=== PATIENT | female | born 1935 | race Caucasian/White ===

== ENCOUNTER 2016-12-15 14:45 | Inpatient (IN) | payer OTHER, MEDICARE ==
[~2016-12-15] VITALS: Ht 157.5 cm; Wt 55.0 kg
[2016-12-15] MEDS ORDERED: FOLI1TAB7 PO (15:06)
[2016-12-15] MEDS ORDERED: CLOP1TAB15 PO (15:06)
[2016-12-15] MEDS ORDERED: SIMV20TA2 PO (15:06)
--- NOTE | 2016-12-15 16:06 | DIAGNOSTIC IMAGING REPORT ---
ADDENDUM Addendum: There is a subtle lucency involving the lateral cortex of the femur at the level of the femoral spike. On the original interpretation, this was incorrectly assumed to represent a vascular groove. In retrospect, with the knowledge of the CT scan performed the same day, this lucency represents a nondisplaced fracture. Electronically signed by: Sidney Mtz M.D. 12/15/2016 5:03 PM Dictated Date/Time: 12/15/2016 5:01 PM ORIGINAL REPORT LEFT FEMUR 2 VIEWS, AP PELVIS AND LEFT HIP 2 VIEWS. CLINICAL HISTORY: Left femur and hip pain status post trauma COMPARISON: None. DISCUSSION: Views of the pelvis and left hip reveal no acute fractures. There are postsurgical changes of a left hip arthroplasty. There are osteoarthritic changes present on the right. Degenerative changes are present within the lower lumbar spine. Images of the left femur reveal postsurgical changes of a left hip arthroplasty. There are no acute fractures. There are vascular calcifications present. IMPRESSION: No acute fractures or dislocations identified. Electronically signed by: Sidney Mtz M.D. 12/15/2016 4:04 PM Dictated Date/Time: 12/15/2016 4:02 PM
[2016-12-15] MEDS ORDERED: HYDROCODONE/ACETAMOPHEN 5/325MG TAB PO STA (16:25)
--- NOTE | 2016-12-15 17:02 | DIAGNOSTIC IMAGING REPORT ---
ADDENDUM Addendum: There is fragmentation of the posterior lip of the acetabulum. This is likely old. This addendum was discussed with Dr. Puri. Electronically signed by: Sideny Mtz M.D. 12/15/2016 6:20 PM Dictated Date/Time: 12/15/2016 6:[address] LEFT HIP-LOWER EXTREMITY WITHOUT CT DOSE: 469.57 mGy.cm CLINICAL HISTORY: LEFT HIP PAIN. INABILITY TO BEAR WEIGHT. TECHNIQUE: Helical images were acquired in the transverse plane. Sagittal and coronal reformatted images were acquired. A dose lowering technique was utilized adhering to the principles of ALARA. COMPARISON STUDY: Conventional radiographic study dated 12/15/2016 FINDINGS: There are postsurgical changes of a total left hip arthroplasty. There is no dislocation There is a periprosthetic fracture extending the entire length of the femoral spike. There is 2.5 mm of maximal distraction. No acetabular fractures are visualized. IMPRESSION: 1. Periprosthetic femoral shaft fracture, extending the entire length of femoral spike with 2.5 mm of maximal distraction Electronically signed by: Sidney Mtz M.D. 12/15/2016 5:01 PM Dictated Date/Time: 12/15/2016 4:56 PM
--- NOTE | 2016-12-15 18:07 | EMERGENCY ROOM VISIT NOTE ---
History First contact with patient: 14:58 Chief Complaint: FALL Stated Complaint: PAIN UPPER THIGH, LEFT LEG History of Present Illness The patient is an 81 year old female who presents to the Emergency Room with complaints of left hip pain after a fall which occurred yesterday. The patient states that she tripped and fell yesterday while walking up steps, landing onto her left hip. She has a history of a hip replacement which was done by an orthopedist in [place]. She has had pain in the left hip since then and has not been able to bear any weight on the leg. The patient denies hitting her head. There were no other injuries sustained. She denies any numbness or weakness of the leg. She denies discomfort at rest. She has been taking Vicodin as needed for pain. Review of Systems A complete 6 point review of systems was reviewed with the patient with pertinent positives and negatives as per history of present illness. All else were negative. Past Medical/Surgical History Medical Problems: (1) Hip pain Surgical Problems: (1) Status post right knee replacement Social History Smoking Status: Never Smoker Housing Status: lives alone Occupation Status: retired Current/Historical Medications Scheduled Clopidogrel (Plavix), 75 MG PO DAILY Doxycycline Monohydrate (Monodox), 100 MG PO DAILY Folic Acid (Folvite), 1 MG PO DAILY Losartan Potassium (Cozaar), 1 TAB PO DAILY Ocuvite Preservision (Ocuvite Preservision), 1 TAB PO DAILY Pantoprazole Sodium (Protonix), 1 TAB PO DAILY Simvastatin (Zocor), 20 MG PO HS Physical Exam Vital Signs Date Time Temp Pulse Resp B/P (MAP) Pulse Ox O2 Delivery O2 Flow Rate FiO2 12/15/16 18:13 69 12/15/16 18:00 72 16 137/72 98 Room Air 12/15/16 16:03 71 16 116/60 94 Room Air 12/15/16 14:51 36.7 77 18 136/71 95 Room Air Physical Exam VITALS: Vitals are noted on the nurse's note and reviewed by myself. Vital signs stable. GENERAL: This is an 81-year-old female, appears younger than her stated age, in no acute distress, well-developed well-nourished. SKIN: The skin was without erythema, edema, or bruising. HEAD: Normocephalic atraumatic. HEART: Regular rate and rhythm without murmurs gallops or rubs. LUNGS: Clear to auscultation bilaterally without wheezes, rales or rhonchi. MUSCULOSKELETAL: Tenderness to palpation of the lateral left hip. No tenderness of the distal femur, knee or tibia/fibula. Decreased range of motion secondary to patient discomfort. Dorsalis pedis pulse 2+. NEURO: Patient was alert and oriented to person place and time. Normal sensation to light and sharp touch. Medical Decision & Procedures ER Provider Diagnostic Interpretation: LEFT FEMUR 2 VIEWS, AP PELVIS AND LEFT HIP 2 VIEWS. DISCUSSION: Views of the pelvis and left hip reveal no acute fractures. There are postsurgical changes of a left hip arthroplasty. There are osteoarthritic changes present on the right. Degenerative changes are present within the lower lumbar spine. Images of the left femur reveal postsurgical changes of a left hip arthroplasty. There are no acute fractures. There are vascular calcifications present. IMPRESSION: No acute fractures or dislocations identified. CT LEFT HIP-LOWER EXTREMITY WITHOUT FINDINGS: There are postsurgical changes of a total left hip arthroplasty. There is no dislocation There is a periprosthetic fracture extending the entire length of the femoral spike. There is 2.5 mm of maximal distraction. No acetabular fractures are visualized. IMPRESSION: 1. Periprosthetic femoral shaft fracture, extending the entire length of femoral spike with 2.5 mm of maximal distraction Addendum: There is fragmentation of the posterior lip of the acetabulum. This is likely old. This addendum was discussed with Dr. Puri. Laboratory Results 12/15/16 18:34 Red Blood Count 3.80, Mean Corpuscular Volume 93.4, Mean Corpuscular Hemoglobin 31.3, Mean Corpuscular Hemoglobin Concent 33.5, Mean Platelet Volume 9.8, Neutrophils (%) (Auto) 62.8, Lymphocytes (%) (Auto) 26.9, Monocytes (%) (Auto) 8.5, Eosinophils (%) (Auto) 1.4, Basophils (%) (Auto) 0.2, Neutrophils # (Auto) 5.30, Lymphocytes # (Auto) 2.27, Monocytes # (Auto) 0.72, Eosinophils # (Auto) 0.12, Basophils # (Auto) 0.02 12/15/16 18:33 Test 12/15/16 18:04 7/23/17 18:33 12/15/16 18:34 Urine Color YELLOW Urine Appearance CLEAR (CLEAR) Urine pH 5.0 (4.5-7.5) Urine Specific [place] 1.016 (1.000-1.030) Urine Protein NEG (NEG) Urine Glucose (UA) NEG (NEG) Urine Ketones NEG (NEG) Urine Occult Blood 2+ (NEG) Urine Nitrite NEG (NEG) Urine Bilirubin NEG (NEG) Urine Urobilinogen NEG (NEG) Urine Leukocyte Esterase MODERATE (NEG) Urine WBC (Auto) 10-30 /hpf (0-5) Urine RBC (Auto) 0-4 /hpf (0-4) Urine Hyaline Casts (Auto) 1-5 /lpf (0-5) Urine Epithelial Cells (Auto) >30 /lpf (0-5) Urine Bacteria (Auto) NEG (NEG) Anion Gap 6.0 mmol/L (3-11) Est Creatinine Clear Calc Drug Dose 64.9 ml/min Estimated GFR () 102.4 Estimated GFR (Non- 88.4 BUN/Creatinine Ratio 16.3 (10-20) Calcium Level 8.4 mg/dl (8.5-10.1) White Blood Count 8.45 K/uL (4.8-10.8) Red Blood Count 3.80 M/uL (4.2-5.4) Hemoglobin 11.9 g/dL (12.0-16.0) Hematocrit 35.5 % (37-47) Mean Corpuscular Volume 93.4 fL (80-100) Mean Corpuscular Hemoglobin 31.3 pg (25-34) Mean Corpuscular Hemoglobin Concent 33.5 g/dl (32-36) Platelet Count 188 K/uL (130-400) Mean Platelet Volume 9.8 fL (7.4-10.4) Neutrophils (%) (Auto) 62.8 % Lymphocytes (%) (Auto) 26.9 % Monocytes (%) (Auto) 8.5 % Eosinophils (%) (Auto) 1.4 % Basophils (%) (Auto) 0.2 % Neutrophils # (Auto) 5.30 K/uL (1.4-6.5) Lymphocytes # (Auto) 2.27 K/uL (1.2-3.4) Monocytes # (Auto) 0.72 K/uL (0.11-0.59) Eosinophils # (Auto) 0.12 K/uL (0-0.5) Basophils # (Auto) 0.02 K/uL (0-0.2) RDW Standard Deviation 46.3 fL (36.4-46.3) RDW Coefficient of Variation 13.6 % (11.5-14.5) Immature Granulocyte % (Auto) 0.2 % Immature Granulocyte # (Auto) 0.02 K/uL (0.00-0.02) Medications Administered Medications (Trade) Dose Ordered Sig/Gabriel Route Start Time Stop Time Status Last Admin Dose Admin Acetaminophen/ Hydrocodone Bitart ([place] 5/325 Tab) 1 tab NOW STAT PO 12/15/16 16:25 12/15/16 16:26 DC 12/15/16 16:25 1 TAB ED Course The patient was evaluated as above. X-rays of the left femur and pelvis were obtained and read by radiology without any fractures. Due to high clinical suspicion for occult fracture, he scan was ordered and read by radiology. Case was discussed with Dr. Puri of orthopedics. He recommended admission to medicine and he will consult on the patient. [facility], Dr. Umanzor. He agreed to evaluate the patient for admission. Labs were drawn and IV access was obtained at this time. Medical Decision Differential diagnosis includes fracture, contusion, dislocation, sprain, among others. The patient is an 81-year-old female with past medical history of left hip replacement who presents today complaining of left hip pain after a fall. X- rays initially were negative, but due to clinical suspicion for occult fracture , CT was performed and did show a periprosthetic fracture which extends the length of the prosthesis. The patient had her initial surgery performed in [place], however I do not feel she will be able to return and there at this time. Case was discussed with Dr. Puri of orthopedics, who will consult on the patient. [facility]. Medication Reconcilliation Current Medication List: was personally reviewed by me Blood Pressure Screening Patient's blood pressure: Normal blood pressure Impression Primary Impression: Malina-prosthetic femoral shaft fracture Departure Information Referrals No Doctor, Assigned (PCP) Patient Instructions [facility]
[2016-12-15] MEDS ORDERED: PRT/20 PO (18:08)
[2016-12-15] MEDS ORDERED: MULT-190 PO (18:08)
[2016-12-15] MEDS ORDERED: DOXY100C76 PO (18:08)
[2016-12-15] MEDS ORDERED: LOSA1TAB PO (18:08)
[2016-12-15 18:16] LABS: URINE APPEARANCE CLEAR (CLEAR); URINE BILIRUBIN NEG (NEG); URINE COLOR YELLOW; URINE EPITHELIAL CELL AUTO >30 /lpf (0-5); URINE NITRITE NEG (NEG); URINE SPECIFIC GRAVITY 1.016 (1.000-1.030); UROBILINOGEN NEG (NEG); ZZUR CULT IF INDIC CLEAN CATCH YES
[2016-12-15 18:18] LABS: MANUAL MICROSCOPIC REQUIRED? NO; REVIEW REQ? NO
--- NOTE | 2016-12-15 18:18 | DIAGNOSTIC IMAGING REPORT ---
CHEST ONE VIEW PORTABLE CLINICAL HISTORY: Acute femoral fracture COMPARISON STUDY: No previous studies for comparison. FINDINGS: The cardiac and mediastinal contours are normal. There is no focal pulmonary consolidation. There is no failure. There are no pleural effusions. There is an old right-sided rib fracture. Postsurgical changes involve the right shoulder. Advanced arthritic changes involve the left shoulder.[ IMPRESSION: No active disease in the chest. Electronically signed by: Sidney Mtz M.D. 12/15/2016 6:17 PM Dictated Date/Time: 12/15/2016 6:12 PM
[2016-12-15] MEDS ORDERED: ACETAMINOPHEN 325 MG TAB PO PRN (18:45)
[2016-12-15] MEDS ORDERED: SOD PHOSPHATE/SOD BIPHOSPHATE ENEMA 132 ML BTL PR PRN (18:45)
[2016-12-15] MEDS ORDERED: MoRPHine SULFATE 2 MG/ML CARP IV PRN (18:45)
[2016-12-15] MEDS ORDERED: POLYETHYLENE (MIRALAX) 17 GM PACK PO PRN (18:45)
[2016-12-15] MEDS ORDERED: NALOXONE HCL 0.4 MG/1 ML VIAL/CARP IV PRN (18:45)
[2016-12-15] MEDS ORDERED: OXYCODONE HCL IR 5 MG TAB (IMMEDIATE RELEASE) PO PRN ×2 (18:45)
[2016-12-15] MEDS ORDERED: MAGNESIUM HYDROXIDE SUSP 30 ML UDC PO PRN (18:45)
[2016-12-15] MEDS ORDERED: ONDANSETRON INJ 2 MG/ML 2 ML VIAL IV PRN (18:45)
[2016-12-15] MEDS ORDERED: BISACODYL 10 MG SUPP PR PRN (18:45)
[2016-12-15 18:51] LABS: BASO % 0.2 %; BASO ABS # 0.02 K/uL (0-0.2); COMPLETE YES; EOS % 1.4 %; HEMATOCRIT 35.5 % (37-47); IG% 0.2 %; LYMPH % 26.9 %; LYMPH ABS # 2.27 K/uL (1.2-3.4); MEAN CELL VOLUME 93.4 fL (80-100); MEAN CORPUSCULAR HEMOGLOBIN 31.3 pg (25-34); MEAN CORPUSCULAR HGB CONC 33.5 g/dl (32-36); MEAN PLATELET VOLUME 9.8 fL (7.4-10.4); MONO % 8.5 %; NEUT % 62.8 %; PLATELET COUNT 188 K/uL (130-400); WHITE BLOOD COUNT 8.45 K/uL (4.8-10.8)
--- NOTE | 2016-12-15 19:05 | History and Physical ---
History & Physical Date & Time of Service: Dec 15, 2016 at 18:46 Chief Complaint: Pain Upper Thigh, Left Leg Primary Care Physician: No Doctor, Assigned History of Present Illness Source: patient Patient is an 81 yr female with PMH of HTN, HLP, TIA and arthritis presents for evaluation of left hip pain secondary to fall yesterday. She reports she tripped and fell yesterday and landed on her left side. She complains of left hip pain on ambulation and is unable to bare weight on left leg. She has a remote history of left hip dislocation twice which she had been operated for 16 yrs ago which was done in [place]. Denies any history of head trauma, LOC, bowel/bladder incontinence, weakness, numbness, Chest pain, SOB, cough, fever, chills, nausea, vomiting, diarrhea or urinary symptoms. Reports taking Vicodin as needed for pain. Currently states having no pain at rest. Past Medical/Surgical History Surgical Problems: (1) Status post right knee replacement Status: Resolved PAst Medical History: PMH of HTN, HLP, TIA and arthritis Past Surgical history: Right knee surgery, Left hip surgery X2, Right shoulder surgery Family History Father: Heart disease Social History Smoking Status: Never Smoker Alcohol Use: socially Occupational Status: retired Allergies Coded Allergies: No Known Allergies (Unverified , 12/15/16) Home Medications Scheduled Clopidogrel (Plavix), 75 MG PO DAILY Doxycycline Monohydrate (Monodox), 100 MG PO DAILY Folic Acid (Folvite), 1 MG PO DAILY Losartan Potassium (Cozaar), 1 TAB PO DAILY Ocuvite Preservision (Ocuvite Preservision), 1 TAB PO DAILY Pantoprazole Sodium (Protonix), 1 TAB PO DAILY Simvastatin (Zocor), 20 MG PO HS Review of Systems See HPI for pertinent positives & negatives. A total of 10 systems reviewed and were otherwise negative. Physical Exam Vital Signs Date Time Temp Pulse Resp B/P (MAP) Pulse Ox O2 Delivery O2 Flow Rate FiO2 12/15/16 18:13 69 12/15/16 18:00 72 16 137/72 98 Room Air 12/15/16 16:03 71 16 116/60 94 Room Air 12/15/16 14:51 36.7 77 18 136/71 95 Room Air General Appearance: WD/WN, no apparent distress Head: normocephalic, atraumatic Eyes: normal inspection, PERRL, EOMI, sclerae normal ENT: normal ENT inspection, hearing grossly normal Neck: supple, trachea midline Respiratory/Chest: chest non-tender, lungs clear, normal breath sounds, no respiratory distress Cardiovascular: regular rate, rhythm, no edema, no murmur Abdomen/GI: normal bowel sounds, non tender, soft Back: normal inspection Extremities/Musculoskelatal: normal inspection, no pedal edema, + pertinent finding (Arthritic changes on all extremities ) Neurologic/Psych: academic interventionist II-XII nml as tested, no motor/sensory deficits, alert, normal mood/affect, oriented x 3, + pertinent finding (Left LE complete exam could not be performed) Skin: normal color, warm/dry Diagnostics Laboratory Results Results Past 24 Hours Test 12/15/16 18:04 12/15/16 18:33 12/15/16 18:34 Range/Units Urine Color YELLOW Urine Appearance CLEAR CLEAR Urine pH 5.0 4.5-7.5 Urine Specific [place] 1.016 1.000-1.030 Urine Protein NEG NEG Urine Glucose (UA) NEG NEG Urine Ketones NEG NEG Urine Occult Blood 2+ NEG Urine Nitrite NEG NEG Urine Bilirubin NEG NEG Urine Urobilinogen NEG NEG Urine Leukocyte Esterase MODERATE NEG Urine WBC (Auto) 10-30 0-5 /hpf Urine RBC (Auto) 0-4 0-4 /hpf Urine Hyaline Casts (Auto) 1-5 0-5 /lpf Urine Epithelial Cells (Auto) >30 0-5 /lpf Urine Bacteria (Auto) NEG NEG Microbiology Results 12/15/16 Urine Culture, Received Pending Diagnostic Radiology CT Left Hip: 1. Periprosthetic femoral shaft fracture, extending the entire length of femoral spike with 2.5 mm of maximal distraction CXR: No active disease in the chest. EKG EKG: NSR Impression Assessment and Plan Left Hip Fracture S/P mechanical fall Admit in med/surg Labs pending CT Hip: Periprosthetic femoral shaft fracture Orthopedics consulted NPO after midnight Pain control Bowel regimen to prevent constipation PT/OT IV fluids Hold Plavix (Last taken yesterday morning) Heparin SQ for DVT Px Abnormal UA: Denies any urinary symptoms Follow up Urine culture Recent Tick bite: Completed 18 days of Doxy Denies any symptoms Currently not taking doxycycline HTN: Stable Continue Losartan H/O TIA: Hold plavix for now HLP: Stable Hold statin for now DVT Px: Heparin SQ Code Status: Full Code Disposition: marketing services vice president consulted Needs rehab after surgery VTE Prophylaxis VTE Risk Assessment Done? Y/N: Yes Risk Level: Low
[2016-12-15 19:07] LABS: BUN/CREATININE RATIO 16.3 (10-20); CALCIUM 8.4 mg/dl (8.5-10.1); CREATININE 0.52 mg/dl (0.60-1.20); POTASSIUM 3.8 mmol/L (3.5-5.1)
[2016-12-15 19:16] LABS: INR 1.1 (0.9-1.1); PARTIAL THROMBOPLASTIN RATIO 1.1; PROTHROMBIN TIME (PATIENT) 11.3 SECONDS (9.0-12.0)
[2016-12-15 20:40] VITALS: BP 160/69; PULSE 70; TEMP 36.9; O2SAT 95; Ht 157.5 cm; Wt 55.0 kg
[2016-12-15] MEDS ORDERED: DOCUSATE SODIUM/SENNA 50/8.6MG TAB PO SCH (21:00)
[2016-12-15] MEDS ORDERED: HEPARIN SOD 5000 UNIT/0.5 ML CARP SQ SCH (22:00)
--- NOTE | 2016-12-15 22:02 | ORTHOPEDIC CONSULTATION ---
DATE OF ADMISSION: 12/15/2016 CHIEF COMPLAINT: Left hip pain. HISTORY OF PRESENT ILLNESS: The patient, an 81-year-old female from [place], who is visiting in the area various family, sustained a fall yesterday. She tripped and fell and landed on her left side. She had acute onset of pain and discomfort. She is unable to put any significant weight on her left leg since then. She presented in the Emergency Room where x-rays were initially had negative There was a CT scan done, which revealed a periprosthetic femur fracture. The patient was admitted by the hospitalist and we were consulted for treatment. She denies any previous hip problems since her surgery 16 years ago. That was complicated by 2 dislocations and subsequent revision to a constrained liner done at the [facility]. She has had no problems with it since. She was not having any pain in her thigh or her hip previous to this. She lives in [place]. She lives by herself. She has a cane, which she uses intermittently. PAST MEDICAL HISTORY: Past medical history is significant for: 1. Hypertension. 2. HLP. 3. TIA with one episode without residual sequelae. 4. Arthritis. PAST SURGICAL HISTORY: Includes: 1. Right knee replacement surgery 20 years ago. 2. Right shoulder replacement 4 years ago. 3. Left hip replacement 16 years ago and subsequent revision with a polyethylene liner. ALLERGIES: None. CURRENT MEDICINES: Include: 1. Plavix. 2. Doxycycline. 3. Folic acid. 4. Cozaar. 5. Ocuvite PreserVision. 6. Zocor. 7. Protonix. SOCIAL HISTORY: An 81-year-old female. She is independent and lives by herself. She is from [place]. Does not smoke. Social alcohol intake. FAMILY HISTORY: Significant for heart disease. REVIEW OF SYSTEMS: Negative for diabetes. She had this one episode of a TIA and on Plavix. Denies any current chest pain or shortness of breath. No neck pain, no back pain, no head injury, no loss of consciousness. PHYSICAL EXAMINATION: VITAL SIGNS: Temperature is 36.7. Vital signs are stable. GENERAL: Musculoskeletal exam reveals an elderly female, who is sitting up in bed and eating her dinner. She looks comfortable. A general musculoskeletal exam reveals painless range of motion of her cervical, thoracic and lumbar spine. She has got pain with motion of both shoulders, both elbows, both hands, right lower extremity. Examination of the left leg reveals it to be well aligned. There is a well-healed incision of the superior aspect of her left femur and hip area. There is no significant bruising or deformity. Leg lengths appeared, clinically, pretty equal. She can dorsiflex and plantarflex her foot appropriately. She has got no knee effusion. X-RAYS: X-rays of the left hip and femur were reviewed. It shows a left uncemented total hip arthroplasty. She has got a constrained liner in place. There is fairly minimal amount of polyethylene wear. Bone density looks good. Her acetabular component is retroverted. A CT scan shows a left periprosthetic femur fracture. It extends from the upper part of the bone around the lesser trochanter to just to the tip of the implant. On further review of the x-rays, I do believe that we can see this back on the x-ray. There is no significant displacement. No signs of lucency around the implant. It is a metaphysial fitting implant. ASSESSMENT: An 81-year-old female, who is 16 years out from a left total hip replacement, complicated by dislocation and subsequent constrained liner with, what appears to be, a [place] B1 periprosthetic femur fracture. The implant appears to be stable despite the fracture. There are no signs of a subsidence or lucency around the implant. There is some fairly mild polyethylene wear. Her acetabular component is retroverted, but has not had problems with dislocation since the constrained liner has been placed. PLAN: She has been admitted by the hospitalist service. She is essentially medically optimized. We discussed treatment options and, in my opinion, this is best treated with ORIF with cables and plate. I do not think her implants are loose and her bone density and bone stock is good. She is still concerned whether she might want to go back to [place] for this. The risks and benefits of the procedure were explained to the patient, including, but not limited to, DVT, PE, , infection, neurological injury, vascular injury, bleeding problem, pain, nonunion, malunion and the prolonged convalescence from touch weightbearing for 6-8 weeks. Also, discussed the possible need for blood transfusion. She understands and informed consent was obtained. She will likely proceed, but she is going to consider this overnight and if she decides to go back to [place], she will let us know tomorrow. Otherwise, we will plan on doing this tomorrow morning. We will keep her n.p.o. We will hold her Plavix and hold her heparin after tonight. DVT prophylaxis include thigh-high TEDs, SCDs and Plavix postop. We will, likely, put her in some Lechuga's traction just for comfort.
[2016-12-15] MEDS: D5W AND 1/2NSS 1,000 ML IV SCH (22:39)
[2016-12-15 23:20] VITALS: BP 181/81; PULSE 75; TEMP 36.8; O2SAT 95
[2016-12-15 23:50] VITALS: BP 156/80
[2016-12-16 05:46] LABS: BASO % 0.4 %; BASO ABS # 0.03 K/uL (0-0.2); COMPLETE YES; HEMATOCRIT 34.8 % (37-47); IG% 0.3 %; LYMPH % 25.5 %; LYMPH ABS # 2.03 K/uL (1.2-3.4); MEAN CELL VOLUME 93.5 fL (80-100); MEAN CORPUSCULAR HEMOGLOBIN 31.5 pg (25-34); MEAN CORPUSCULAR HGB CONC 33.6 g/dl (32-36); MEAN PLATELET VOLUME 9.6 fL (7.4-10.4); MONO % 7.7 %; NEUT % 64.1 %; PLATELET COUNT 185 K/uL (130-400); RED BLOOD COUNT 3.72 M/uL (4.2-5.4); WHITE BLOOD COUNT 7.96 K/uL (4.8-10.8)
[2016-12-16] MEDS ORDERED: CEFAZOLIN IV 2,000 MG in DEXTROSE 5% 50ML 50 ML IV SCH (06:00)
[2016-12-16 06:19] LABS: BUN/CREATININE RATIO 10.8 (10-20); CALCIUM 8.3 mg/dl (8.5-10.1); CREATININE 0.48 mg/dl (0.60-1.20); POTASSIUM 3.6 mmol/L (3.5-5.1)
[2016-12-16 07:14] VITALS: BP 138/78; PULSE 65; TEMP 37; O2SAT 96
--- NOTE | 2016-12-16 07:33 | Progress Note ---
Internal Med Progress Note Date of Service: Dec 16, 2016. Provider Documentation: SUBJECTIVE: Seen and examined at bedside Planned for surgery later today Feels anxious about surgery and couldn't sleep well overnight Denies left hip pain, chest pain, SOB, dizziness No new complaints OBJECTIVE: Vital Signs-as noted below General Appearance: WD/WN, no apparent distress Head: normocephalic, atraumatic Eyes: normal inspection, PERRL, EOMI, sclerae normal ENT: normal ENT inspection, hearing grossly normal Neck: supple, trachea midline Respiratory/Chest: chest non-tender, lungs clear, normal breath sounds, no respiratory distress Cardiovascular: regular rate, rhythm, no edema, no murmur Abdomen/GI: normal bowel sounds, non tender, soft Back: normal inspection Extremities/Musculoskelatal: normal inspection, no pedal edema, + pertinent finding (Arthritic changes on all extremities ) Neurologic/Psych: schedule announcer II-XII nml as tested, no motor/sensory deficits, alert, normal mood/affect, oriented x 3, + pertinent finding (complete Left LE exam could not be performed) Skin: normal color, warm/dry Lab data as noted below. ASSESSMENT & PLAN: Left periprosthetic femur fracture S/P mechanical fall CT Hip: Periprosthetic femoral shaft fracture Appreciate Orthopedics help NPO for now as planned for surgery later today Pain control Bowel regimen to prevent constipation PT/OT IV fluids Hold Plavix (Last taken yesterday morning) Heparin SQ for DVT Px Abnormal UA: Denies any urinary symptoms Urine culture pending Recent Tick bite: Completed 18 days of Doxy Denies any symptoms Currently not taking doxycycline HTN: Stable Continue Losartan H/O TIA: Hold Plavix for now as planned for surgery today HLP: Stable On statin DVT Px: Heparin SQ Code Status: Full Code Disposition: management services technician consulted Needs rehab after surgery Vital Signs: Date Time Temp Pulse Resp B/P (MAP) Pulse Ox O2 Delivery O2 Flow Rate FiO2 12/16/16 07:14 37.0 65 18 138/78 (98) 96 Room Air 12/15/16 23:50 Room Air 12/15/16 23:50 156/80 (105) 12/15/16 23:20 36.8 75 14 181/81 (114) 95 Room Air 12/15/16 20:40 36.9 70 14 160/69 95 Room Air 12/15/16 19:11 72 16 134/76 98 Room Air 12/15/16 18:13 69 12/15/16 18:00 72 16 137/72 98 Room Air 12/15/16 16:03 71 16 116/60 94 Room Air 12/15/16 14:51 36.7 77 18 136/71 95 Room Air Lab Results: Results Past 24 Hours Test 12/15/16 18:04 12/15/16 18:33 12/15/16 18:34 12/16/16 05:19 Range/Units Urine Color YELLOW Urine Appearance CLEAR CLEAR Urine pH 5.0 4.5-7.5 Urine Specific Irene 1.016 1.000-1.030 Urine Protein NEG NEG Urine Glucose (UA) NEG NEG Urine Ketones NEG NEG Urine Occult Blood 2+ NEG Urine Nitrite NEG NEG Urine Bilirubin NEG NEG Urine Urobilinogen NEG NEG Urine Leukocyte Esterase MODERATE NEG Urine WBC (Auto) 10-30 0-5 /hpf Urine RBC (Auto) 0-4 0-4 /hpf Urine Hyaline Casts (Auto) 1-5 0-5 /lpf Urine Epithelial Cells (Auto) >30 0-5 /lpf Urine Bacteria (Auto) NEG NEG Prothrombin Time 11.3 9.0-12.0 SECONDS Prothromb Time International Ratio 1.1 0.9-1.1 Activated Partial Thromboplast Time 27.3 21.0-31.0 SECONDS Partial Thromboplastin Ratio 1.1 Sodium Level 141 142 136-145 mmol/L Potassium Level 3.8 3.6 3.5-5.1 mmol/L Chloride Level 109 109 98-107 mmol/L Carbon Dioxide Level 26 26 21-32 mmol/L Anion Gap 6.0 7.0 3-11 mmol/L Blood Urea Nitrogen 9 5 7-18 mg/dl Creatinine 0.52 0.48 0.60-1.20 mg/dl Est Creatinine Clear Calc Drug Dose 64.9 70.3 ml/min Estimated GFR () 102.4 105.1 Estimated GFR (Non- 88.4 90.7 BUN/Creatinine Ratio 16.3 10.8 10-20 Random Glucose 98 140 70-99 mg/dl Calcium Level 8.4 8.3 8.5-10.1 mg/dl White Blood Count 8.45 7.96 4.8-10.8 K/uL Red Blood Count 3.80 3.72 4.2-5.4 M/uL Hemoglobin 11.9 11.7 12.0-16.0 g/dL Hematocrit 35.5 34.8 37-47 % Mean Corpuscular Volume 93.4 93.5 80-100 fL Mean Corpuscular Hemoglobin 31.3 31.5 25-34 pg Mean Corpuscular Hemoglobin Concent 33.5 33.6 32-36 g/dl Platelet Count 188 185 130-400 K/uL Mean Platelet Volume 9.8 9.6 7.4-10.4 fL Neutrophils (%) (Auto) 62.8 64.1 % Lymphocytes (%) (Auto) 26.9 25.5 % Monocytes (%) (Auto) 8.5 7.7 % Eosinophils (%) (Auto) 1.4 2.0 % Basophils (%) (Auto) 0.2 0.4 % Neutrophils # (Auto) 5.30 5.11 1.4-6.5 K/uL Lymphocytes # (Auto) 2.27 2.03 1.2-3.4 K/uL Monocytes # (Auto) 0.72 0.61 0.11-0.59 K/uL Eosinophils # (Auto) 0.12 0.16 0-0.5 K/uL Basophils # (Auto) 0.02 0.03 0-0.2 K/uL RDW Standard Deviation 46.3 46.3 36.4-46.3 fL RDW Coefficient of Variation 13.6 13.5 11.5-14.5 % Immature Granulocyte % (Auto) 0.2 0.3 % Immature Granulocyte # (Auto) 0.02 0.02 0.00-0.02 K/uL Microbiology Results 12/15/16 MRSA DNA Surveillance Screen - Final, Complete Specimen Negative for MRSA by DNA Probe 12/15/16 Urine Culture, Received Pending
[2016-12-16] MEDS ORDERED: LORAZEPAM 0.5 MG TAB PO ONE (07:45)
[2016-12-16] MEDS: LOSARTAN POTASSIUM 25 MG TAB PO SCH (08:32)
[2016-12-16] MEDS: D5W AND 1/2NSS 1,000 ML IV SCH ×2 (08:35→20:44)
--- NOTE | 2016-12-16 08:54 | PROGRESS NOTE ---
DATE: 12/15/2016 SUBJECTIVE: An 81-year-old white female admitted last evening with a left periprosthetic femur fracture. No new complaints today. She has elected to proceed with surgical treatment here. OBJECTIVE: VITAL SIGNS: Temperature is 37.0. Vital signs stable. PHYSICAL EXAMINATION: GENERAL: Reveals a pleasant elderly female. She is lying in bed, looks pretty comfortable. EXTREMITIES: Examination of the left leg reveals it to be well aligned. No significant swelling or bruising. She is neurologically intact. LABORATORY DATA: Hemoglobin 11.3. Hematocrit 34.8. Electrolytes are stable. 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 She has elected to proceed with surgical treatment here. PLAN: We are going to proceed with open reduction internal fixation of left periprosthetic femur fracture later this afternoon. The risks and benefits once again reviewed and all questions answered. The patient and her family desires to proceed and informed consent obtained. In the meantime, we will continue DVT prophylaxis including thigh-high TEDs, SCDs. We will hold her heparin as well as her Plavix.
[2016-12-16] MEDS ORDERED: LABETALOL HCL IV 5 MG/ML 20ML IV PRN (13:45)
[2016-12-16] MEDS ORDERED: HYDROmorphone INJ 2 MG/ML SYR/VIAL IV PRN (13:45)
[2016-12-16] MEDS ORDERED: ONDANSETRON INJ 2 MG/ML 2 ML VIAL IV PRN (13:45)
[2016-12-16] MEDS ORDERED: ATROPINE SULFATE 0.1 MG/ML 5ML SYR IV PRN (13:45)
[2016-12-16] MEDS ORDERED: KETOROLAC TROMETHAMINE 15 MG/ML VIAL IV. PRN (13:45)
[2016-12-16] MEDS ORDERED: BACITRACIN 50000 UNIT VIAL ONE (13:46)
[2016-12-16] MEDS ORDERED: BUPIVACAINE/EPINEPHRINE 0.5% MPF 1:200,000 10 ML VIAL ONE ×2 (13:48→14:07)
--- NOTE | 2016-12-16 13:54 | History & Physical Bridge Note ---
H&P Re-Evaluation Bridge Note: I have examined the patient, reviewed the History & Physical and in the interval since the performance of the History & Physical I have noted the following changes of clinical significance: No changes noted
[2016-12-16] MEDS ORDERED: MIDAZOLAM HCL 1 MG/ML 2ML VIAL ONE (13:55)
[2016-12-16] MEDS ORDERED: FENTANYL CITRATE INJ 50 MCG/1 ML 2 ML VIAL ONE ×2 (13:55→14:56)
[2016-12-16] MEDS ORDERED: LIDOCAINE HCL 2% 2 ML VIAL (20MG/ML) ONE (14:57)
[2016-12-16] MEDS ORDERED: EpHEDrine SULFATE 50MG/5ML SYR ONE (14:57)
[2016-12-16] MEDS ORDERED: PROPOFOL IV EMULSION 10 MG/ML 20 ML VIAL IV ONE (14:57)
[2016-12-16] MEDS ORDERED: ONDANSETRON INJ 2 MG/ML 2 ML VIAL ONE (14:57)
[2016-12-16] MEDS ORDERED: PHENYLEPHRINE 100MCG/ML 5ML SYR ONE (14:57)
[2016-12-16] MEDS ORDERED: NEOSTIGMINE METHYLSULFATE 5 MG/5 ML SYR ONE (14:57)
[2016-12-16] MEDS ORDERED: DEXAMETHASONE SOD INJ 4 MG/ML VIAL ONE (14:57)
[2016-12-16] MEDS ORDERED: GLYCOPYRROLATE INJ 0.2 MG/ML VIAL ONE (14:57)
[2016-12-16] MEDS ORDERED: ROCURONIUM BROMIDE 10 MG/ML 5 ML VIAL ONE (14:58)
[2016-12-16] MEDS ORDERED: LARYING-O-JET KIT (LTA) ONE ×2 (14:58)
--- NOTE | 2016-12-16 17:03 | DIAGNOSTIC IMAGING REPORT ---
INTRAOPERATIVE RADIOGRAPHS CLINICAL HISTORY: Open reduction and internal fixation of the left femur. Periprosthetic fracture. Fluoroscopy time: 87 seconds. FINDINGS: 7 spot fluoroscopic views of the left femur are correlated with radiographs dated 12/15/2016. A left hip arthroplasty is unchanged in appearance. A buttress plate has been placed along the lateral femoral cortex. Numerous cortical lag screws transfix the buttress plate and several cerclage wires are in place. No distracted fracture is seen. IMPRESSION: Intraoperative images from open reduction and internal fixation of the left femur as above. Electronically signed by: Philip Melgar M.D. 12/16/2016 5:01 PM Dictated Date/Time: 12/16/2016 5:00 PM
--- NOTE | 2016-12-16 17:10 | [facility] Post Operative Brief Note ---
Immediate Operative Summary Operative Date Dec 16, 2016. Pre-Operative Diagnosis Left Periprosthetic Femur Fracture - [place] A1 Post-Operative Diagnosis Same as preoperative Procedure(s) Performed Left Open Reduction Internal Fixation Periprosthetic Fracture Surgeon Dr. Jg Puri Piece Marker Small Arms Surgeon(s) Grant Neil PA-C Estimated Blood Loss 300ml Findings Spiral gustavo-prosthetic femur fracture Fluids (cc crystalloids) 2500 cc Specimens None per surgeon Drains None Anesthesia General Complication(s) None Disposition Recovery Room / PACU
[2016-12-16] MEDS ORDERED: MAGNESIUM HYDROXIDE SUSP 30 ML UDC PO PRN (17:15)
[2016-12-16] MEDS ORDERED: BISACODYL 10 MG SUPP PR PRN (17:15)
[2016-12-16] MEDS ORDERED: HYDROmorphone INJ 1 MG/ML SYR ONE (17:39)
--- NOTE | 2016-12-16 18:14 | Anesthesiology Progress Note ---
Anesthesia Post Op Note Date & Time Dec 16, 2016 at 18:14 Vital Signs Pain Intensity: 2 Vital Signs Past 12 Hours Date Time Temp Pulse Resp B/P (MAP) Pulse Ox O2 Delivery O2 Flow Rate FiO2 12/16/16 18:00 58 16 124/51 99 Nasal Cannula 4 12/16/16 17:50 72 16 110/56 99 Nasal Cannula 4 12/16/16 17:40 64 16 107/71 99 Nasal Cannula 4 12/16/16 17:30 81 16 117/58 99 Oxymask 10 12/16/16 17:20 81 16 116/60 98 Oxymask 10 12/16/16 17:13 36.7 62 16 94/45 97 Oxymask 10 12/16/16 08:20 Room Air 12/16/16 07:14 37.0 65 18 138/78 (98) 96 Room Air Notes Mental Status: alert / awake / arousable, participated in evaluation Pt Amnestic to Procedure: Yes Nausea / Vomiting: adequately controlled Pain: adequately controlled Airway Patency, RR, SpO2: stable & adequate BP & HR: stable & adequate Hydration State: stable & adequate Anesthetic Complications: no major complications apparent
[2016-12-16 18:35] VITALS: BP 126/75; PULSE 68; TEMP 36.4; O2SAT 99
[2016-12-16] MEDS: HYDROmorphone INJ 0.5 MG/0.5 ML SYR IV PRN ×3 (18:57→22:11)
[2016-12-16 19:05] VITALS: BP 117/72; PULSE 64; TEMP 36.4; O2SAT 98
[2016-12-16 19:35] VITALS: BP 124/81; PULSE 78; TEMP 36.4; O2SAT 98
[2016-12-16] MEDS: OXYCODONE HCL IR 5 MG TAB (IMMEDIATE RELEASE) PO PRN (19:38)
[2016-12-16 20:35] VITALS: BP 114/72; PULSE 66; TEMP 36.5; O2SAT 97
[2016-12-16] MEDS: DOCUSATE SODIUM/SENNA 50/8.6MG TAB PO SCH (20:44)
[2016-12-16 21:31] VITALS: BP 118/68; PULSE 89; TEMP 36.5; O2SAT 99
[2016-12-16] MEDS: CEFAZOLIN IV 1,000 MG in DEXTROSE 5% 50ML 50 ML IV SCH (22:11)
[2016-12-17] VITALS (28 sets, daily range): BP systolic 65–129; BP diastolic 37–71; PULSE 70–96; TEMP 36.7–37.2; O2SAT 88–100
[2016-12-17] MEDS: OXYCODONE HCL IR 5 MG TAB (IMMEDIATE RELEASE) PO PRN ×4 (00:25→20:09)
[2016-12-17 03:29] LABS: BASO % 0.1 %; BASO ABS # 0.01 K/uL (0-0.2); HEMATOCRIT 27.2 % (37-47); IG% 0.3 %; LYMPH ABS # 1.24 K/uL (1.2-3.4); MEAN CELL VOLUME 97.1 fL (80-100); MEAN CORPUSCULAR HEMOGLOBIN 33.6 pg (25-34); MEAN PLATELET VOLUME 9.6 fL (7.4-10.4); MONO % 6.8 %; NEUT % 83.8 %; PLATELET COUNT 211 K/uL (130-400); WHITE BLOOD COUNT 13.84 K/uL (4.8-10.8)
[2016-12-17] MEDS: HYDROmorphone INJ 0.5 MG/0.5 ML SYR IV PRN ×2 (03:48→08:13)
[2016-12-17 03:59] LABS: BUN/CREATININE RATIO 6.9 (10-20); CALCIUM 7.7 mg/dl (8.5-10.1); CREATININE 0.75 mg/dl (0.60-1.20); POTASSIUM 4.2 mmol/L (3.5-5.1)
[2016-12-17 04:02] LABS: COMPLETE YES; MEAN CORPUSCULAR HGB CONC 34.6 g/dl (32-36)
--- NOTE | 2016-12-17 05:43 | OPERATIVE REPORT ---
DATE OF OPERATION: 12/16/2016 SURGEON: Jg Puri MD SCHOOL SPEECH LANGUAGE PATHOLOGIST: ALEC Montgomery PREOPERATIVE DIAGNOSIS: Left [place] B1 periprosthetic femur fracture status post total hip replacement. POSTOPERATIVE DIAGNOSIS: Same. PROCEDURE PERFORMED: Open reduction internal fixation of left periprosthetic femur fracture. COMPLICATIONS: None. ESTIMATED BLOOD LOSS: 300 mL. FLUID REPLACEMENT: 2500 mL crystalloid fluid replacement. ANESTHESIA: General. SPECIMENS: None. OPERATIVE INDICATIONS: The patient is an 81-year-old very active and healthy female who about 16 years out from a total hip replacement done at [facility]. This is complicated by 2 dislocations and subsequent constrained liner placement. She has done well for the past 15 years without any problems. She sustained a fall 2 days ago. She was unable to ambulate and put weight on her leg since then. She was brought to Emergency Room where x-rays are fairly benign in appearance. CT scan revealed periprosthetic femur fracture. Based on her history and imaging studies, the implant appeared well fixed to the bone despite this fracture. There was fairly minimal polyethylene wear. The patient indicated for surgical fixation. OPERATIVE IMPLANTS: Operative implants consisted of: 1. Synthes 16-hole 5.0 curved large fragment locking plate. 2. Synthes 1.7 mm cables x6. 3. Synthes 4.5 fully threaded cortical screws x2. 4. Synthes 5.0 fully threaded cortical locking screws x5. OPERATIVE PROCEDURE: The patient taken to the operating room, identified and placed on the operating table in supine position. All contact areas were appropriately padded. IV antibiotics were provided by anesthesia team. General anesthetic was implemented by anesthesia team as the patient has been on Plavix. A bump was placed underneath the left hip. X-ray was brought in to make sure we could get adequate radiographs. I then scrubbed the leg with Hibiclens and then prepped it with ChloraPrep and then draped the left femur in the typical sterile fashion. A direct lateral approach to the femur was then performed through a longitudinal incision directly over the lateral aspect of the femur. Sharp dissection was carried out through the subcutaneous tissues down to the level of the IT band. The IT band was incised longitudinally in line with the skin incision. The vastus lateralis was then retracted anteriorly. I then made an incision in the posterior aspect of the vastus lateralis and retracted it anteriorly. The fracture was relatively nondisplaced. I then placed 2 Synthes cables around the fracture site. I placed 1 more distal and then 1 more proximal above the lesser trochanter and then tightened these and then I clamped them. I really felt that cerclaging the femur itself might be enough, but treatment for this typically is well established to include plate fixation, so we contoured a 16-hole Synthes 5.0 locking plate to the lateral aspect of the femur. It was fixed proximally with four 1.7 mm Synthes cables placed through buttons and then distally with two 4.5 mm fully threaded cortical screws and then subsequently 4 additional 5.0 fully threaded cortical locking screws. This provided excellent stability to the fracture. I did place 1 additional 5.0 locking screw proximally into the greater trochanter. Final x-rays were obtained. We then proceeded with closing. The wound was irrigated with copious amounts of pulsatile lavage solution. The IT band was then closed with #1 Vicryl suture in running fashion. The subcutaneous tissue was then closed in 2 layers with the deep layer 0 Vicryl suture in a buried interrupted fashion and the subcutaneous tissues with 2-0 Dexon suture in a buried interrupted fashion. Skin was closed skin bijal. Leg was then cleaned and dried and a sterile dressing of Xeroform, 4 x 4's, ABD pad and foam tape was applied. The patient then brought out of general anesthesia and transferred to the recovery room in stable condition. The patient tolerated the procedure well with no complications. All needle and sponge counts were correct at the end of the operation. I attest to the content of the Intraoperative Record and any orders documented therein. Any exceptions are noted below. FREDDY
[2016-12-17] MEDS: CEFAZOLIN IV 1,000 MG in DEXTROSE 5% 50ML 50 ML IV SCH (05:52)
[2016-12-17] MEDS: LOSARTAN POTASSIUM 25 MG TAB PO SCH (08:55)
[2016-12-17] MEDS: CLOPIDOGREL BISULFATE 75 MG TAB PO SCH (08:56)
[2016-12-17] MEDS: D5W AND 1/2NSS 1,000 ML IV SCH (11:15)
[2016-12-17] MEDS ORDERED: SODIUM CHLORIDE 0.9% 1000ML 1,000 ML IV SCH (12:00)
[2016-12-17] MEDS ORDERED: NURSING VERBAL MED ORDER ONE ×2 (12:00→14:00)
[2016-12-17 12:06] LABS: HEMATOCRIT 23.3 % (37-47); MEAN CELL VOLUME 96.7 fL (80-100); MEAN CORPUSCULAR HEMOGLOBIN 32.8 pg (25-34); MEAN CORPUSCULAR HGB CONC 33.9 g/dl (32-36); MEAN PLATELET VOLUME 9.4 fL (7.4-10.4); PLATELET COUNT 196 K/uL (130-400); RED BLOOD COUNT 2.41 M/uL (4.2-5.4); WHITE BLOOD COUNT 13.25 K/uL (4.8-10.8)
[2016-12-17 12:30] LABS: BUN/CREATININE RATIO 7.7 (10-20); CALCIUM 7.8 mg/dl (8.5-10.1); CREATININE 1.1 mg/dl (0.60-1.20); MAGNESIUM 1.5 mg/dl (1.8-2.4); POTASSIUM 4.4 mmol/L (3.5-5.1)
--- NOTE | 2016-12-17 13:26 | Clinical Documentation Query ---
QUERY 1 OF [address] GUZMÁN, In your clinical opinion is this patient being managed for: ( + ) Acute blood loss anemia ( ) Other explanation of clinical findings (Please Explain) ( ) Unable to determine (Please Define) ( ) Need to Discuss ( ) Not Agree The medical record reflects the following clinical findings, treatment, and risk factors. Clinical Indicators: 81 yo female presenting after a fall with a perioprosthetic L hip fracture. Initial Hgb 11.9, Hct 35.5 which has trended down to 7.9/23.3. Pt also hypotensive with BP as low as 74/44. EBL of 300 cc. Treatment: 500 cc NSS bolus, monitor CBC/PRP Risk Factors: fall with hip fracture requiring surgical repair QUERY 2 OF 2 In your clinical opinion is this patient being managed for: ( + ) Acute kidney injury ( ) Other explanation of clinical findings (Please Explain) ( ) Unable to determine (Please Define) ( ) Need to Discuss ( ) Not Agree The medical record reflects the following clinical findings, treatment, and risk factors. Clinical Indicators: Presented with BUN 9/Cr 0.52 which has risen to Cr 1.10. Pt also hypotensive with BP as low as 74/44. EBL of 300 cc Treatment: 500 cc NSS bolus, monitor CBC, PRP Risk Factors: hypotension, EBL Please clarify and document your clinical opinion in the progress notes and discharge summary. Terms such as "probable", "suspected", "likely", "questionable", "possible", or "still to be ruled out" are acceptable. IF IN AGREEMENT, YOU MUST DOCUMENT ABOVE DIAGNOSTIC STATEMENT IN DAILY PROGRESS NOTES AND DISCHARGE SUMMARY. This document is not part of the patient's record. Thank You, Jing Gerber, RN [phone]
[2016-12-17] MEDS ORDERED: ACETAMINOPHEN IV 1,000 MG in EMPTY BAG 0 ML IV PRN (14:00)
--- NOTE | 2016-12-17 14:05 | PROGRESS NOTE ---
DATE: 12/17/2016 SUBJECTIVE: An 81-year-old female postop day 1 from an ORIF of a left periprosthetic femur fracture. She is doing okay. Has been a little bit dizzy and nauseated. Blood pressure has been little bit low. Some moderate amount of pain. Denies any chest pain or shortness of breath. OBJECTIVE: VITAL SIGNS: Temperature 36.8. Vital signs stable. Been hypotensive at about 90/50. PHYSICAL EXAMINATION: GENERAL: Reveals a pleasant elderly female. She is sitting up in her bedside chair. Looks a little bit pale. EXTREMITIES: Examination of left hip reveals the dressing to be clean, dry and intact. There is no major drainage. Her leg is well aligned. She can dorsiflex and plantarflex her foot appropriately. She is neurologically intact. LABORATORY DATA: Hemoglobin was 9.4. Hematocrit 27.2. Electrolytes are stable. ASSESSMENT: An 81-year-old female, postop day 1 from an ORIF of a left periprosthetic femur fracture, doing pretty well. Bit hypotensive, but minimally symptomatic. Her pain has been moderate but reasonably well controlled. PLAN: 1. DVT prophylaxis including thigh-high TEDs, SCDs, and she is back on Plavix starting today. 2. PT/OT. She is toe-touch weightbearing left leg for the next 6 weeks. 3. Medical management as per the medicine service. 4. Disposition: Family is looking into rehab options. They are strongly considering [facility] for a brief rehab stay before travel back to [place].
[2016-12-17] MEDS: D5W AND NSS 1,000 ML IV SCH (14:08)
[2016-12-17] MEDS ORDERED: MAGNESIUM SULFATE 1GM / D5W 1 GM in PREMIXED IN D5W 100 ML IV ONE (14:30)
[2016-12-17] MEDS ORDERED: ONDANSETRON INJ 2 MG/ML 2 ML VIAL IV ONE (14:30)
--- NOTE | 2016-12-17 14:34 | Progress Note ---
Internal Med Progress Note Date of Service: Dec 17, 2016. Provider Documentation: SUBJECTIVE: The patient was seen and examined Was noted to have very low BP with tiredness and sweating this morning Denies any other symptoms Received 500 mls of NS Bolus OBJECTIVE: Vital Signs-as noted below Exam: General-no distress at rest Eyes-normal ENT-normal Neck-supple Lungs-clear to ausucltate bilaterally Heart-Regular,no murmur Abdomen-Benign,no masses,bowel sound present Extremities-Trace edema bilaterally [id number] Lab data as noted below. ASSESSMENT & PLAN: Acute Blood Loss Anemia Hb dropped to 7.9 from >11 May be the cause of Low BP Will check Hb at 5 PM-may need Blood transfusion Low Blood Pressure Likely secondary to Dehydration ,doubt any Infection May be complicated by Acute Blood Loss Received 500 Mls of NS Left periprosthetic femur fracture S/P mechanical fall CT Hip: Periprosthetic femoral shaft fracture Appreciate Orthopedics help s/p ORIF of a left periprosthetic femur fracture Bowel regimen to prevent constipation PT/OT Abnormal UA: Denies any urinary symptoms Urine culture pending-negative Recent Tick bite: Completed 18 days of Doxy Denies any symptoms Currently not taking doxycycline HTN: Stable Continue Losartan H/O TIA: Will restart Plavix if no evidence of Bleeding DVT Px: Heparin SQ Code Status: Full Code Disposition: patient services rep consulted Needs rehab after surgery Vital Signs: Date Time Temp Pulse Resp B/P (MAP) Pulse Ox O2 Delivery O2 Flow Rate FiO2 12/17/16 12:15 36.8 70 14 90/50 (63) 96 Nasal Cannula 2.0 12/17/16 11:53 70 92/58 (69) 12/17/16 11:34 78 96 12/17/16 11:25 36.8 76 18 82/44 (57) 95 Nasal Cannula 2.0 12/17/16 11:10 85 65/37 (46) 12/17/16 11:05 82 74/44 (54) 12/17/16 09:00 73 96/68 (77) 12/17/16 08:40 96 Nasal Cannula 2.0 12/17/16 08:31 37.0 70 12 88/56 (67) 96 Nasal Cannula 2.0 12/17/16 08:12 88 Room Air 12/17/16 08:10 Nasal Cannula 2.0 12/17/16 08:00 74 91/55 (67) 12/17/16 03:00 36.8 86 16 123/63 (83) 95 Nasal Cannula 1.0 12/17/16 00:05 36.7 96 16 105/59 (74) 97 Nasal Cannula 1.0 12/16/16 23:21 Nasal Cannula 2.0 12/16/16 21:31 36.5 89 16 118/68 (85) 99 Nasal Cannula 2.0 12/16/16 20:35 36.5 66 16 114/72 (86) 97 Nasal Cannula 2.0 12/16/16 19:35 36.4 78 16 124/81 (95) 98 Nasal Cannula 2.0 12/16/16 19:05 36.4 64 14 117/72 (87) 98 Nasal Cannula 2.0 12/16/16 18:35 99 Nasal Cannula 2.0 12/16/16 18:35 36.4 68 18 126/75 (92) 99 Nasal Cannula 2.0 12/16/16 18:35 99 Nasal Cannula 2.0 12/16/16 18:10 36.4 78 16 124/55 99 Nasal Cannula 4 12/16/16 18:00 58 16 124/51 99 Nasal Cannula 4 12/16/16 17:50 72 16 110/56 99 Nasal Cannula 4 12/16/16 17:40 64 16 107/71 99 Nasal Cannula 4 12/16/16 17:30 81 16 117/58 99 Oxymask 10 12/16/16 17:20 81 16 116/60 98 Oxymask 10 12/16/16 17:13 36.7 62 16 94/45 97 Oxymask 10 Lab Results: Results Past 24 Hours Test 12/17/16 03:20 12/17/16 11:52 Range/Units White Blood Count 13.84 13.25 4.8-10.8 K/uL Red Blood Count 2.80 2.41 4.2-5.4 M/uL Hemoglobin 9.4 7.9 12.0-16.0 g/dL Hematocrit 27.2 23.3 37-47 % Mean Corpuscular Volume 97.1 96.7 80-100 fL Mean Corpuscular Hemoglobin 33.6 32.8 25-34 pg Mean Corpuscular Hemoglobin Concent 34.6 33.9 32-36 g/dl Platelet Count 211 196 130-400 K/uL Mean Platelet Volume 9.6 9.4 7.4-10.4 fL Neutrophils (%) (Auto) 83.8 % Lymphocytes (%) (Auto) 9.0 % Monocytes (%) (Auto) 6.8 % Eosinophils (%) (Auto) 0.0 % Basophils (%) (Auto) 0.1 % Neutrophils # (Auto) 11.61 1.4-6.5 K/uL Lymphocytes # (Auto) 1.24 1.2-3.4 K/uL Monocytes # (Auto) 0.94 0.11-0.59 K/uL Eosinophils # (Auto) 0.00 0-0.5 K/uL Basophils # (Auto) 0.01 0-0.2 K/uL RDW Standard Deviation 48.8 49.5 36.4-46.3 fL RDW Coefficient of Variation 13.8 14.0 11.5-14.5 % Immature Granulocyte % (Auto) 0.3 % Immature Granulocyte # (Auto) 0.04 0.00-0.02 K/uL Sodium Level 139 135 136-145 mmol/L Potassium Level 4.2 4.4 3.5-5.1 mmol/L Chloride Level 105 101 98-107 mmol/L Carbon Dioxide Level 28 28 21-32 mmol/L Anion Gap 6.0 6.0 3-11 mmol/L Blood Urea Nitrogen 5 9 7-18 mg/dl Creatinine 0.75 1.10 0.60-1.20 mg/dl Est Creatinine Clear Calc Drug Dose 45.0 30.7 ml/min Estimated GFR () 85.4 53.8 Estimated GFR (Non- 73.7 46.4 BUN/Creatinine Ratio 6.9 7.7 10-20 Random Glucose 175 164 70-99 mg/dl Calcium Level 7.7 7.8 8.5-10.1 mg/dl Magnesium Level 1.5 1.8-2.4 mg/dl
[2016-12-17] MEDS ORDERED: ALUMINUM/MAGNESIUM SUSP 30 ML UDC PO PRN (15:45)
[2016-12-17] MEDS: SIMVASTATIN 20 MG TAB PO SCH (21:05)
[2016-12-17] MEDS: DOCUSATE SODIUM/SENNA 50/8.6MG TAB PO SCH (21:05)
[2016-12-17] MEDS: DOXYCYCLINE HYCLATE 100 MG CAP PO SCH (21:05)
[2016-12-17] MEDS: DICLOFENAC SOD 1% GEL 100 GM TUBE EXT PRN (23:59)
[2016-12-18] VITALS (8 sets, daily range): BP systolic 98–155; BP diastolic 54–72; PULSE 72–87; TEMP 36.8–37.1; O2SAT 87–97
[2016-12-18] MEDS: D5W AND NSS 1,000 ML IV SCH ×4 (01:55→23:52)
[2016-12-18] MEDS: HYDROmorphone INJ 0.5 MG/0.5 ML SYR IV PRN (01:55)
[2016-12-18] MEDS: POLYETHYLENE (MIRALAX) 17 GM PACK PO SCH ×3 (06:11→17:28)
[2016-12-18 06:15] LABS: HEMATOCRIT 29.9 % (37-47); MEAN CELL VOLUME 92.9 fL (80-100); MEAN CORPUSCULAR HEMOGLOBIN 31.4 pg (25-34); MEAN CORPUSCULAR HGB CONC 33.8 g/dl (32-36); MEAN PLATELET VOLUME 9.8 fL (7.4-10.4); PLATELET COUNT 125 K/uL (130-400); RED BLOOD COUNT 3.22 M/uL (4.2-5.4); WHITE BLOOD COUNT 10.31 K/uL (4.8-10.8)
[2016-12-18 07:53] LABS: CREATININE 0.59 mg/dl (0.60-1.20); POTASSIUM 4.2 mmol/L (3.5-5.1)
[2016-12-18] MEDS: OXYCODONE HCL IR 5 MG TAB (IMMEDIATE RELEASE) PO PRN ×4 (08:30→23:49)
[2016-12-18] MEDS: CLOPIDOGREL BISULFATE 75 MG TAB PO SCH (08:31)
[2016-12-18] MEDS: PANTOprazole SOD 40 MG TAB PO SCH (08:31)
[2016-12-18] MEDS: DOXYCYCLINE HYCLATE 100 MG CAP PO SCH ×2 (08:32→21:05)
[2016-12-18] MEDS: LOSARTAN POTASSIUM 25 MG TAB PO SCH (08:35)
--- NOTE | 2016-12-18 12:37 | PROGRESS NOTE ---
DATE: 12/18/2016 SUBJECTIVE: An 81-year-old female postop day #2 from ORIF of left periprosthetic femur fracture. A little bit better today. Pain is a bit better control. The nausea and GI discomfort has resolved. Denies any chest pain or shortness of breath. OBJECTIVE: VITAL SIGNS: Temperature 36.9. Vital signs stable. PHYSICAL EXAMINATION: GENERAL: A pleasant elderly female, obese, sitting up in her bedside chair and looks pretty comfortable. Her color looks better today. EXTREMITIES: Examination of left hip reveals the dressing to be clean, dry and intact. Hip is located. She is neurologically intact. LABORATORY DATA: Hemoglobin 10.1, hematocrit 29.9. Electrolytes are stable. ASSESSMENT: An 81-year-old female postop day #2 from open reduction internal fixation of left periprosthetic femur fracture, doing better today. Pain seems to be controlled. She did get 2 units of blood and I think that has helped her feel better. PLAN: 1. DVT prophylaxis including thigh-high TEDs, SCDs, and Plavix. We are going to stick with that for DVT prophylaxis. 2. PT/OT. She is touch weightbearing only, left lower extremity for 6 weeks. 3. Pain control seems to be doing pretty well on the current pain regimen. 4. Medical management as per the medicine service. 5. Disposition: She is hoping to be discharged to [facility] for a brief rehab stay once medically stable. I do think we need to monitor closely and make sure hemoglobin stable before discharge. That is going to require at least another day or 2. MTDD
--- NOTE | 2016-12-18 18:20 | Discharge Instructions ---
Discharge Instructions Date of Service Dec 18, 2016. Admission Reason for Admission: Hip Pain Discharge Discharge Diagnosis / Problem: ORIF left gustavo-prosthetic femur fracture Discharge Goals Goal(s): Decrease discomfort, Improve function, Increase independence, Improve disease control, Therapeutic intervention Activity Recommendations Activity Level: Assistance Required Therapies: Physical Therapy, Weight Bearing Status (Left leg Toe-touch weight- bearing for 6 weeks ), Occupational Therapy Weightbearing Status: Left toe touch (Left toe-touch WB for 6 weeks) . Additional Information Patient informed of condition: Yes Advance Directives: No DNR: No Level of Care: Acute Rehab Communicable Disease: No Prognosis: Improving Instructions / Follow-Up Instructions / Follow-Up Ortho follow-up 2 weeks post-op Current Hospital Diet Patient's current hospital diet: AHA Diet (Heart Healthy) Discharge Diet Recommended Diet: AHA Diet (Heart Healthy) Procedures Procedures Performed: Left Open Reduction Internal Fixation Periprosthetic Fracture Pending Studies Studies pending at discharge: no Medical Emergencies . Who to Call and When: Medical Emergencies: If at any time you feel your situation is an emergency, please call 911 immediately. . Non-Emergent Contact Non-Emergency issues call your: Surgeon . . "Provider Documentation" section prepared by Jg Puri. . Core Measure Problem Core Measures: None
[2016-12-18] MEDS: SIMVASTATIN 20 MG TAB PO SCH (21:05)
[2016-12-18] MEDS: DOCUSATE SODIUM/SENNA 50/8.6MG TAB PO SCH (21:05)
[2016-12-18] MEDS: DICLOFENAC SOD 1% GEL 100 GM TUBE EXT PRN (22:45)
[2016-12-19] MEDS ORDERED: NURSING VERBAL MED ORDER ONE
[2016-12-19] MEDS: D5W AND NSS 1,000 ML IV SCH ×2 (05:30→12:42)
[2016-12-19] MEDS: OXYCODONE HCL IR 5 MG TAB (IMMEDIATE RELEASE) PO PRN ×2 (05:44→11:48)
[2016-12-19 06:33] LABS: MEAN CELL VOLUME 93.5 fL (80-100); MEAN CORPUSCULAR HEMOGLOBIN 31.3 pg (25-34); MEAN CORPUSCULAR HGB CONC 33.4 g/dl (32-36); MEAN PLATELET VOLUME 9.6 fL (7.4-10.4); PLATELET COUNT 154 K/uL (130-400); WHITE BLOOD COUNT 10.89 K/uL (4.8-10.8)
[2016-12-19 08:16] VITALS: O2SAT 90
[2016-12-19 08:28] VITALS: BP 118/72; PULSE 72; TEMP 36.9; O2SAT 90
[2016-12-19 08:48] VITALS: BP 132/73; PULSE 81
[2016-12-19] MEDS: CLOPIDOGREL BISULFATE 75 MG TAB PO SCH (08:48)
[2016-12-19] MEDS: DOXYCYCLINE HYCLATE 100 MG CAP PO SCH (08:48)
[2016-12-19] MEDS: LOSARTAN POTASSIUM 25 MG TAB PO SCH (08:48)
[2016-12-19] MEDS: PANTOprazole SOD 40 MG TAB PO SCH (08:48)
--- NOTE | 2016-12-19 10:56 | Progress Note ---
Internal Med Progress Note Date of Service: Dec 18, 2016. Provider Documentation: This is a bill for 12/18/16 SUBJECTIVE: The patient was seen and examined Was noted to have very low BP with tiredness and sweating this morning Denies any other symptoms Much better following blood transfusion OBJECTIVE: Vital Signs-as noted below Exam: General-no distress at rest Eyes-normal ENT-normal Neck-supple Lungs-clear to ausucltate bilaterally Heart-Regular,no murmur Abdomen-Benign,no masses,bowel sound present Extremities-Trace edema bilaterally [id number] Lab data as noted below. ASSESSMENT & PLAN: Acute Blood Loss Anemia Hb dropped to 7.9 from >11 May be the cause of Low BP S/P 2 units of PRBC Feels better Low Blood Pressure Likely secondary to Dehydration ,doubt any Infection May be complicated by Acute Blood Loss Received 500 Mls of NS BP is stable Left periprosthetic femur fracture S/P mechanical fall CT Hip: Periprosthetic femoral shaft fracture Appreciate Orthopedics help s/p ORIF of a left periprosthetic femur fracture Bowel regimen to prevent constipation PT/OT Abnormal UA: Denies any urinary symptoms Urine culture pending-negative Recent Tick bite: Completed 18 days of Doxy Denies any symptoms Currently not taking doxycycline HTN: Stable Continue Losartan H/O TIA: Will restart Plavix if no evidence of Bleeding DVT Px: Heparin SQ Code Status: Full Code Disposition: multimedia services manager consulted Needs rehab after surgery Vital Signs: Date Time Temp Pulse Resp B/P (MAP) Pulse Ox O2 Delivery O2 Flow Rate FiO2 12/19/16 08:48 81 132/73 (92) 12/19/16 08:28 36.9 72 14 118/72 (87) 90 Room Air 12/19/16 08:16 90 Room Air 12/19/16 07:10 Room Air 12/18/16 23:44 Room Air 12/18/16 23:05 36.8 87 18 155/71 (99) 92 Room Air 12/18/16 15:40 Room Air 12/18/16 15:17 37.1 85 18 123/71 (88) 93 Room Air 12/18/16 11:42 36.9 80 14 98/56 (70) 91 Nasal Cannula 2.0 Lab Results: Results Past 24 Hours Test 12/19/16 06:21 Range/Units White Blood Count 10.89 4.8-10.8 K/uL Red Blood Count 3.10 4.2-5.4 M/uL Hemoglobin 9.7 12.0-16.0 g/dL Hematocrit 29.0 37-47 % Mean Corpuscular Volume 93.5 80-100 fL Mean Corpuscular Hemoglobin 31.3 25-34 pg Mean Corpuscular Hemoglobin Concent 33.4 32-36 g/dl RDW Standard Deviation 49.1 36.4-46.3 fL RDW Coefficient of Variation 14.5 11.5-14.5 % Platelet Count 154 130-400 K/uL Mean Platelet Volume 9.6 7.4-10.4 fL
--- NOTE | 2016-12-19 10:58 | Progress Note ---
Internal Med Progress Note Date of Service: Dec 19, 2016. Provider Documentation: SUBJECTIVE: The patient was seen and examined Was noted to have very low BP with tiredness and sweating Much better following blood transfusion Denies any symptoms OBJECTIVE: Vital Signs-as noted below Exam: General-no distress at rest OOB in a chair Eyes-normal ENT-normal Neck-supple Lungs-clear to ausucltate bilaterally Heart-Regular,no murmur Abdomen-Benign,no masses,bowel sound present Extremities-Trace edema bilaterally [id number] Lab data as noted below. ASSESSMENT & PLAN: Acute Blood Loss Anemia Hb dropped to 7.9 from >11 May be the cause of Low BP S/P 2 units of PRBC Feels a lot better Low Blood Pressure Likely secondary to Dehydration ,doubt any Infection May be complicated by Acute Blood Loss Received 500 Mls of NS BP is stable and maintaining Left periprosthetic femur fracture S/P mechanical fall CT Hip: Periprosthetic femoral shaft fracture Appreciate Orthopedics help s/p ORIF of a left periprosthetic femur fracture Bowel regimen to prevent constipation PT/OT -ongoing Abnormal UA: Denies any urinary symptoms Urine culture pending-negative Recent Tick bite: Completed 18 days of Doxy Denies any symptoms Currently not taking doxycycline HTN: Stable Continue Losartan H/O TIA: Will restart Plavix if no evidence of Bleeding DVT Px: Heparin SQ Code Status: Full Code Disposition: nutrition services associate consulted Will go for Rehab today Vital Signs: Date Time Temp Pulse Resp B/P (MAP) Pulse Ox O2 Delivery O2 Flow Rate FiO2 12/19/16 08:48 81 132/73 (92) 12/19/16 08:28 36.9 72 14 118/72 (87) 90 Room Air 12/19/16 08:16 90 Room Air 12/19/16 07:10 Room Air 12/18/16 23:44 Room Air 12/18/16 23:05 36.8 87 18 155/71 (99) 92 Room Air 12/18/16 15:40 Room Air 12/18/16 15:17 37.1 85 18 123/71 (88) 93 Room Air 12/18/16 11:42 36.9 80 14 98/56 (70) 91 Nasal Cannula 2.0 Lab Results: Results Past 24 Hours Test 12/19/16 06:21 Range/Units White Blood Count 10.89 4.8-10.8 K/uL Red Blood Count 3.10 4.2-5.4 M/uL Hemoglobin 9.7 12.0-16.0 g/dL Hematocrit 29.0 37-47 % Mean Corpuscular Volume 93.5 80-100 fL Mean Corpuscular Hemoglobin 31.3 25-34 pg Mean Corpuscular Hemoglobin Concent 33.4 32-36 g/dl RDW Standard Deviation 49.1 36.4-46.3 fL RDW Coefficient of Variation 14.5 11.5-14.5 % Platelet Count 154 130-400 K/uL Mean Platelet Volume 9.6 7.4-10.4 fL
[2016-12-19 11:49] VITALS: BP 120/70; PULSE 70; TEMP 36.8; O2SAT 95
[2016-12-19] MEDS ORDERED: MRLP17X PO (13:21)
[2016-12-19] MEDS ORDERED: SENN8.6T7 PO (13:21)
[2016-12-19] MEDS ORDERED: RXC5 PO (13:21)
--- NOTE | 2016-12-19 13:25 | Discharge Instructions ---
Discharge Instructions Date of Service Dec 19, 2016. Admission Reason for Admission: Hip Pain Discharge Discharge Diagnosis / Problem: ORIF right Femur,Acute Blood Loss Anemia Discharge Goals Goal(s): Prevent Disease Progression Activity Recommendations Activity Level: Assistance Required Therapies: Physical Therapy, Occupational Therapy . Additional Information Patient informed of condition: Yes Advance Directives: No DNR: No Level of Care: Skilled Communicable Disease: No Prognosis: Stable Oxygen at (LPM): 2 liters/min via NC as needed Bailon Catheter: No Instructions / Follow-Up Instructions / Follow-Up Please make an appointment with your PCP within 7 days of discharge from the Facility Current Hospital Diet Patient's current hospital diet: AHA Diet (Heart Healthy) Discharge Diet Recommended Diet: AHA Diet (Heart Healthy) Procedures Procedures Performed: Left Open Reduction Internal Fixation Periprosthetic Fracture Pending Studies Studies pending at discharge: no Medical Emergencies . Who to Call and When: Medical Emergencies: If at any time you feel your situation is an emergency, please call 911 immediately. . Non-Emergent Contact Non-Emergency issues call your: Primary Care Provider . Past History Medical & Surgical History: (1) Hip pain (2) Malina-prosthetic femoral shaft fracture . "Provider Documentation" section prepared by Pedro Luis Velasco. . Core Measure Problem Core Measures: None
[2016-12-19 13:26] VITALS: BP 120/70; PULSE 70; TEMP 36.8; O2SAT 95
[2016-12-19 15:54] VITALS: BP 133/72; PULSE 75; TEMP 37.2; O2SAT 95
--- NOTE | 2016-12-19 15:59 | PROGRESS NOTE ---
DATE: 12/19/2016 SUBJECTIVE: An 81-year-old white female postop day 3 from a left periprosthetic femur fracture. She seems to be doing better daily. The pain seems to be manageable, but still pretty sore. Denies any chest pain or shortness of breath. Not feeling dizzy or lightheaded. OBJECTIVE: VITAL SIGNS: Temperature 36.8. Vital signs stable. PHYSICAL EXAMINATION: GENERAL: Reveals a pleasant elderly female. She is awake, alert and oriented. EXTREMITIES: Examination of left hip and thigh reveals the incision to be well approximated. Fairly minimal drainage over the past 36 hours. Her hip is located. She is neurologically intact. LABORATORY DATA: Hemoglobin 9.7. Hematocrit 29.0. ASSESSMENT: An 81-year-old white female postop day 3 from open reduction internal fixation left periprosthetic femur fracture. Doing better daily. Pain seems better controlled. She seems in better spirits. PLAN: 1. DVT prophylaxis including thigh-high TEDs, SCDs, and Plavix. 2. PT and OT. She is touch weightbearing only left lower extremity. 3. Pain control. Continue current pain regimen. 4. Medical management as per the medicine service. 5. Disposition: She is orthopedically stable and acceptable for discharge at any time. I believe she is going to [facility] likely later today. I need to see her back 2 weeks postop. Any questions can be directed to me at [phone].
--- NOTE | 2016-12-20 07:56 | Discharge Summary ---
Discharge Summary Date of Service Dec 20, 2016. Discharge Summary Admission Date: Dec 15, 2016 at 18:41 Discharge Date: Dec 19, 2016 Discharge Disposition: intermediate facility Principal Diagnosis: ORIF right Femur,Acute Blood Loss Anemia Secondary Diagnoses/Problems: Please see H&P and Hospital Progress note Consultations: Ortho Medication Reconciliation New Medications: Oxycodone HCl (Oxycodone HCl) 5 Mg Tab 5 MG PO Q4H PRN for Moderate Pain (pain scale 4-6) for 7 Days, #20 TAB Polyethylene (Miralax) 17 Gm Pow 17 GM PO DAILY PRN for Constipation for 30 Days, #30 DOSE Sennosides-Docusate Sodium (Senokot S) 1 Tab Tab 2 TAB PO HS for 30 Days, #60 TAB Continued Medications: Clopidogrel (Plavix) 75 Mg Tab 75 MG PO DAILY, TAB Folic Acid (Folvite) 1 Mg Tab 1 MG PO DAILY, TAB Losartan Potassium (Cozaar) 25 Mg Tab 1 TAB PO DAILY for 30 Days, #30 TAB 5 Refills Ocuvite Preservision (Ocuvite Preservision) 1 Tab Tab 1 TAB PO DAILY, TAB Pantoprazole Sodium (Protonix) 20 Mg Tab 1 TAB PO DAILY for 30 Days, #30 TAB Simvastatin (Zocor) 20 Mg Tab 20 MG PO HS, TAB Discontinued Medications: Doxycycline Monohydrate (Monodox) 100 Mg Cap 100 MG PO DAILY, CAP tomorrow is last dose of this medication Admission Information HPI (per Admitting provider): Patient is an 81 yr female with PMH of HTN, HLP, TIA and arthritis presents for evaluation of left hip pain secondary to fall yesterday. She reports she tripped and fell yesterday and landed on her left side. She complains of left hip pain on ambulation and is unable to bare weight on left leg. She has a remote history of left hip dislocation twice which she had been operated for 16 yrs ago which was done in [place]. Denies any history of head trauma, LOC, bowel/bladder incontinence, weakness, numbness, Chest pain, SOB, cough, fever, chills, nausea, vomiting, diarrhea or urinary symptoms. Reports taking Vicodin as needed for pain. Currently states having no pain at rest. Past Medical/Surgical History Surgical Problems: (1) Status post right knee replacement Status: Resolved PAst Medical History: PMH of HTN, HLP, TIA and arthritis Past Surgical history: Right knee surgery, Left hip surgery X2, Right shoulder surgery Family History Father: Heart disease Social History Smoking Status: Never Smoker Alcohol Use: socially Occupational Status: retired Allergies Coded Allergies: No Known Allergies (Unverified , 12/15/16) Home Medications Scheduled Clopidogrel (Plavix), 75 MG PO DAILY Doxycycline Monohydrate (Monodox), 100 MG PO DAILY Folic Acid (Folvite), 1 MG PO DAILY Losartan Potassium (Cozaar), 1 TAB PO DAILY Ocuvite Preservision (Ocuvite Preservision), 1 TAB PO DAILY Pantoprazole Sodium (Protonix), 1 TAB PO DAILY Simvastatin (Zocor), 20 MG PO HS Review of Systems See HPI for pertinent positives & negatives. A total of 10 systems reviewed and were otherwise negative. Physical Ex - H&P Physical Exam Vital Signs Date Time Temp Pulse Resp B/P (MAP) Pulse Ox O2 Delivery O2 Flow Rate FiO2 12/15/16 18:13 69 12/15/16 18:00 72 16 137/72 98 Room Air 12/15/16 16:03 71 16 116/60 94 Room Air 12/15/16 14:51 36.7 77 18 136/71 95 Room Air General Appearance: WD/WN, no apparent distress Head: normocephalic, atraumatic Eyes: normal inspection, PERRL, EOMI, sclerae normal ENT: normal ENT inspection, hearing grossly normal Neck: supple, trachea midline Respiratory/Chest: chest non-tender, lungs clear, normal breath sounds, no respiratory distress Cardiovascular: regular rate, rhythm, no edema, no murmur Abdomen/GI: normal bowel sounds, non tender, soft Back: normal inspection Extremities/Musculoskelatal: normal inspection, no pedal edema, + pertinent finding (Arthritic changes on all extremities ) Neurologic/Psych: hand rug cleaner II-XII nml as tested, no motor/sensory deficits, alert, normal mood/affect, oriented x 3, + pertinent finding (Left LE complete exam could not be performed) Skin: normal color, warm/dry Diagnostics - H&P Diagnostics Laboratory Results Results Past 24 Hours Test 12/15/16 18:04 12/15/16 18:33 12/15/16 18:34 Range/Units Urine Color YELLOW Urine Appearance CLEAR CLEAR Urine pH 5.0 4.5-7.5 Urine Specific [place] 1.016 1.000-1.030 Urine Protein NEG NEG Urine Glucose (UA) NEG NEG Urine Ketones NEG NEG Urine Occult Blood 2+ NEG Urine Nitrite NEG NEG Urine Bilirubin NEG NEG Urine Urobilinogen NEG NEG Urine Leukocyte Esterase MODERATE NEG Urine WBC (Auto) 10-30 0-5 /hpf Urine RBC (Auto) 0-4 0-4 /hpf Urine Hyaline Casts (Auto) 1-5 0-5 /lpf Urine Epithelial Cells (Auto) >30 0-5 /lpf Urine Bacteria (Auto) NEG NEG Microbiology Results 12/15/16 Urine Culture, Received Pending Diagnostic Radiology CT Left Hip: 1. Periprosthetic femoral shaft fracture, extending the entire length of femoral spike with 2.5 mm of maximal distraction CXR: No active disease in the chest. EKG EKG: NSR Impression - H&P Impression Assessment and Plan Left Hip Fracture S/P mechanical fall Admit in med/surg Labs pending CT Hip: Periprosthetic femoral shaft fracture Orthopedics consulted NPO after midnight Pain control Bowel regimen to prevent constipation PT/OT IV fluids Hold Plavix (Last taken yesterday morning) Heparin SQ for DVT Px Abnormal UA: Denies any urinary symptoms Follow up Urine culture Recent Tick bite: Completed 18 days of Doxy Denies any symptoms Currently not taking doxycycline HTN: Stable Continue Losartan H/O TIA: Hold plavix for now HLP: Stable Hold statin for now DVT Px: Heparin SQ Code Status: Full Code Disposition: director clinical information services consulted Needs rehab after surgery VTE Prophylaxis VTE Risk Assessment Done? Y/N: Yes Risk Level: Low Physical Exam (per Admitting): General Appearance: WD/WN, no apparent distress Head: normocephalic, atraumatic Eyes: normal inspection, PERRL, EOMI, sclerae normal ENT: normal ENT inspection, hearing grossly normal Neck: supple, trachea midline Respiratory/Chest: chest non-tender, lungs clear, normal breath sounds, no respiratory distress Cardiovascular: regular rate, rhythm, no edema, no murmur Abdomen/GI: normal bowel sounds, non tender, soft Back: normal inspection Extremities/Musculoskelatal: normal inspection, no pedal edema, + pertinent finding (Arthritic changes on all extremities ) Neurologic/Psych: hand rug cleaner II-XII nml as tested, no motor/sensory deficits, alert , normal mood/affect, oriented x 3, + pertinent finding (Left LE complete exam could not be performed) Skin: normal color, warm/dry Hospital Course Acute Blood Loss Anemia Hb dropped to 7.9 from >11 May be the cause of Low BP S/P 2 units of PRBC Feels a lot better Low Blood Pressure Likely secondary to Dehydration ,doubt any Infection May be complicated by Acute Blood Loss Received 500 Mls of NS BP is stable and maintaining Left periprosthetic femur fracture S/P mechanical fall CT Hip: Periprosthetic femoral shaft fracture Appreciate Orthopedics help s/p ORIF of a left periprosthetic femur fracture Bowel regimen to prevent constipation PT/OT -ongoing Abnormal UA: Denies any urinary symptoms Urine culture pending-negative Recent Tick bite: Completed 18 days of Doxy Denies any symptoms Currently not taking doxycycline HTN: Stable Continue Losartan H/O TIA: Will restart Plavix if no evidence of Bleeding DVT Px: Heparin SQ Code Status: Full Code Disposition: director clinical information services consulted Will go for Rehab today Total time spent on discharge = 35 minutes This includes examination of the patient, discharge planning, medication reconciliation, and communication with other providers. Discharge Instructions Date of Service Dec 19, 2016. Admission Reason for Admission: Hip Pain Discharge Discharge Diagnosis / Problem: ORIF right Femur,Acute Blood Loss Anemia Discharge Goals Goal(s): Prevent Disease Progression Activity Recommendations Activity Level: Assistance Required Therapies: Physical Therapy, Occupational Therapy . Additional Information Patient informed of condition: Yes Advance Directives: No DNR: No Level of Care: Skilled Communicable Disease: No Prognosis: Stable Oxygen at (LPM): 2 liters/min via NC as needed Bailon Catheter: No Instructions / Follow-Up Instructions / Follow-Up Please make an appointment with your PCP within 7 days of discharge from the Facility Current Hospital Diet Patient's current hospital diet: AHA Diet (Heart Healthy) Discharge Diet Recommended Diet: AHA Diet (Heart Healthy) Procedures Procedures Performed: Left Open Reduction Internal Fixation Periprosthetic Fracture Pending Studies Studies pending at discharge: no Medical Emergencies . Who to Call and When: Medical Emergencies: If at any time you feel your situation is an emergency, please call 911 immediately. . Non-Emergent Contact Non-Emergency issues call your: Primary Care Provider . Past History Medical & Surgical History: (1) Hip pain (2) Malina-prosthetic femoral shaft fracture . "Provider Documentation" section prepared by Pedro Luis Velasco. . Core Measure Problem Core Measures: None <Electronically signed by Pedro Luis Velasco M.D.>
== END 2016-12-19 17:05 | DRG 481 ==
LOC: C.EDB 14:47 → C.3E 18:41 → EDBEDREQSVC 18:50 → ENRESERV 18:53
PROVIDERS: ADMIT Internal Medicine; ATTEND Internal Medicine
PROC: 0QS704Z Reposition Left Upper Femur with Internal Fixation Device, Open Approach (ICD-10-PCS; principal; 2016-12-16 09:00)
DX: M97.02XA Periprosthetic fracture around internal prosthetic left hip joint, initial encounter (principal); D62 Acute posthemorrhagic anemia; I10 Essential (primary) hypertension; E78.5 Hyperlipidemia, unspecified; M19.90 Unspecified osteoarthritis, unspecified site; E66.9 Obesity, unspecified; I95.9 Hypotension, unspecified; E86.0 Dehydration; Z68.22 Body mass index [BMI] 22.0-22.9, adult; Z96.651 Presence of right artificial knee joint; Z86.73 Personal history of transient ischemic attack (TIA), and cerebral infarction without residual deficits; Z82.49 Family history of ischemic heart disease and other diseases of the circulatory system; Z79.899 Other long term (current) drug therapy; Z79.02 Long term (current) use of antithrombotics/antiplatelets; W01.0XXA Fall on same level from slipping, tripping and stumbling without subsequent striking against object, initial encounter